=== PATIENT | male | born 1970 | race Caucasian/White ===

== ENCOUNTER 2020-04-22 23:55 | Emergency (ER) | payer BC, OTHER ==
[~2020-04-22] VITALS: Ht 193 cm; Wt 113.4 kg
[2020-04-23 00:18] VITALS: BP_SYST 176
--- NOTE | 2020-04-23 00:18 | NUR ---
Patient to ER bed 3 to gown for evaluation. Side rails up. Report given to MELISSA JC.
--- NOTE | 2020-04-23 00:38 | NUR ---
ER Dr. Snow at bedside examining patient.
[2020-04-23] MEDS ORDERED: NACL 0.9% 1,000 ML IV ONE (00:43)
--- NOTE | 2020-04-23 00:55 | NUR ---
Wily clark in [facility] - 04/23/20 at 0103 by [email or web address] PT TAKEN TO CT AWAKE VIA TIAGO.
--- NOTE | 2020-04-23 00:56 | NUR ---
# 20 gauge angiocath placed to RT AC. Use of asceptic technique. Opsite placed over site. Blood return noted. Blood for lab drawn from site. Flushed with 10 cc of normal saline. No evidence of infiltration noted. Patient tolerated well.
--- NOTE | 2020-04-23 00:58 | NUR ---
PT TAKEN TO CT AWAKE VIA GURNEY.
--- NOTE | 2020-04-23 01:05 | NUR ---
PT BACK TO ER AWAKE FROM CT VIA GURHANNAH.
[2020-04-23 01:07] LABS: BILIRUBIN,URINE NEGATIVE (NEGATIVE); CLARITY/URINE CLEAR (CLEAR); COLOR,URINE YELLOW (YELLOW); GLUCOSE,URINE NEGATIVE (NEGATIVE); KETONES,URINE NEGATIVE (NEGATIVE); LEUKOCYTE ESTERASE ,URINE NEGATIVE (NEGATIVE); NITRITE, URINE NEGATIVE (NEGATIVE); PROTEIN URINE NEGATIVE (NEGATIVE); UROBILINOGEN,URINE 0.2 (0.2-1.0)
[2020-04-23 01:10] LABS: BASOPHILS % (AUTO) 0.2 % (0.0-2.0); EOSINOPHILS % (AUTO) 0.5 % (0.0-4.0); LYMPHOCYTES # (AUTO) 1.9 K/uL (1.0-5.5); LYMPHOCYTES % (AUTO) 20.5 % (20.5-51.5); MEAN CORPUSCULAR HEMOGLOBIN 32 pg (27-31); MEAN CORPUSCULAR HGB CONC 35 % (32-36); MEAN CORPUSCULAR VOLUME 92 fL (79.0-98.0); MONOCYTES # (AUTO) 0.6 K/uL (0.0-1.0); MONOCYTES % (AUTO) 6.3 % (1.7-9.3); NEUTROPHILS # (AUTO) 6.6 K/uL (1.8-7.7); NEUTROPHILS % (AUTO) 72.5 % (40.0-70.0); PLATELET COUNT (AUTO) 197 K/uL (130-430); RED CELL DISTRIBUTION WIDTH 13.9 % (9.0-15.0); WHITE BLOOD COUNT (AUTO) 9.1 K/uL (4.8-10.8)
[2020-04-23 01:11] LABS: BLOOD, URINE TRACE (NEGATIVE)
[2020-04-23 01:13] LABS: BACTERIA,URINE FEW /HPF (None Seen); WBC,URINE 0-3 /HPF (0-3)
[2020-04-23 01:21] LABS: CALCIUM 8.9 mg/dL (8.4-11.0); POTASSIUM 4.2 mmol/L (3.5-5.1)
[2020-04-23 01:27] LABS: TOTAL BILIRUBIN 0.2 mg/dL (0.0-1.0)
[2020-04-23] MEDS ORDERED: PANTOPRAZOLE SODIUM 40 MG/VIAL (PROTONIX) IVP ONE (02:00)
--- NOTE | 2020-04-23 02:26 | NUR ---
Patient given written and verbal discharge instructions and verbalizes understanding. ER MD Dr. Snow discussed with patient the results and treatment provided. Patient in stable condition. ID arm band removed. IV catheter removed intact and dressing applied, no active bleeding. Rx of pepcid given. Patient educated on pain management and to follow up with PMD. Pain Scale 1/10. Opportunity for questions provided and answered. Medication side effect fact sheet provided.
[2020-04-23 02:28] VITALS: BP_SYST 176
== END 2020-04-23 02:26 | disposition home or self-care (01) ==
LOC: SED 23:55
DX: K29.70 Gastritis, unspecified, without bleeding (principal); R10.84 Generalized abdominal pain; I10 Essential (primary) hypertension; F17.210 Nicotine dependence, cigarettes, uncomplicated
CPT/HCPCS: 36415; 71045; 74176; 80053; 81000; 85025; 96374; 99285; C9113; G0482; J7030 ×2

== ENCOUNTER 2021-01-22 09:15 | Emergency (ER) | payer OTHER ==
[~2021-01-22] VITALS: Ht 193 cm; Wt 108.9 kg
[2021-01-22 09:21] VITALS: BP_SYST 196
[2021-01-22] MEDS ORDERED: KETOROLAC TROMETHAMINE 60 MG/2 ML VIAL IM ONE (09:45)
[2021-01-22 09:53] LABS: BILIRUBIN,URINE NEGATIVE (NEGATIVE); CLARITY/URINE CLEAR (CLEAR); COLOR,URINE YELLOW (YELLOW); GLUCOSE,URINE NEGATIVE (NEGATIVE); KETONES,URINE NEGATIVE (NEGATIVE); LEUKOCYTE ESTERASE ,URINE NEGATIVE (NEGATIVE); NITRITE, URINE NEGATIVE (NEGATIVE); PH,URINE 5.5 (5.0-8.0); PROTEIN URINE NEGATIVE (NEGATIVE); UROBILINOGEN,URINE 0.2 (0.2-1.0)
[2021-01-22 10:11] LABS: BLOOD, URINE TRACE (NEGATIVE)
[2021-01-22 10:26] LABS: BASOPHILS % (AUTO) 0.4 % (0.0-2.0); EOSINOPHILS # (AUTO) 0.1 K/uL (0.0-0.4); EOSINOPHILS % (AUTO) 0.7 % (0.0-4.0); HEMATOCRIT 42.9 % (36-54); HEMOGLOBIN 14.6 g/dL (14.0-18.0); LYMPHOCYTES # (AUTO) 2.4 K/uL (1.0-5.5); LYMPHOCYTES % (AUTO) 27.3 % (20.5-51.5); MEAN CORPUSCULAR HEMOGLOBIN 31 pg (27-31); MEAN CORPUSCULAR HGB CONC 34 % (32-36); MEAN CORPUSCULAR VOLUME 91 fL (79.0-98.0); MONOCYTES # (AUTO) 0.6 K/uL (0.0-1.0); MONOCYTES % (AUTO) 7.4 % (1.7-9.3); NEUTROPHILS # (AUTO) 5.5 K/uL (1.8-7.7); NEUTROPHILS % (AUTO) 64.2 % (40.0-70.0); PLATELET COUNT (AUTO) 241 K/uL (130-430); RED CELL DISTRIBUTION WIDTH 13.6 % (9.0-15.0); WHITE BLOOD COUNT (AUTO) 8.6 K/uL (4.8-10.8)
[2021-01-22 10:27] LABS: BACTERIA,URINE None Seen /HPF (None Seen); WBC,URINE NONE SEEN /HPF (0-3)
[2021-01-22 10:34] LABS: CALCIUM 8.9 mg/dL (8.4-11.0); CREATININE 0.83 mg/dL (0.55-1.30); POTASSIUM 4.4 mmol/L (3.5-5.1)
[2021-01-22 10:48] LABS: ALBUMIN 3.6 g/dL (3.4-4.8); TOTAL BILIRUBIN 0.3 mg/dL (0.0-1.0)
[2021-01-22] MEDS ORDERED: CIPR500T5 PO (10:55)
[2021-01-22] MEDS ORDERED: METR500T PO (10:55)
[2021-01-22] MEDS ORDERED: POLY17PO4 PO (10:55)
[2021-01-22 11:04] VITALS: BP_SYST 175
== END 2021-01-22 11:03 | disposition home or self-care (01) ==
LOC: SED 09:15
DX: K57.92 Diverticulitis of intestine, part unspecified, without perforation or abscess without bleeding (principal); I10 Essential (primary) hypertension; Z79.899 Other long term (current) drug therapy
CPT/HCPCS: 36415; 74176; 76376; 80053; 81000; 83690; 85025; 96372; 99284; J1885

== ENCOUNTER 2021-06-03 18:58 | Inpatient (IN) | payer OTHER, SELFPAY ==
[~2021-06-03] VITALS: Ht 190.5 cm; Wt 112.6 kg
[~2021-06-03 18:58] MED LIST: CIPR500T5 PO; METR500T PO; POLY17PO4 PO
[2021-06-03 19:15] VITALS: BP_SYST 146
--- NOTE | 2021-06-03 19:15 | NUR ---
PT TO BED 2 FOR EVALUATION.
--- NOTE | 2021-06-03 19:40 | NUR ---
Assumed total care of patient. Patient alert & oriented x4 from home c/o lower abdominal pain that started about an hour ago. Patient reports 8 out of 10 pain, sharp stabbing like. Patient denies nausea, vomiting, diarrhea. Patient last bowel movement 06/02/21 in the AM. Patient hx of diverticulitis. Patient placed on awake overnight monitor. Breathing even and unlabored, no signs of acute distress. Will continue to monitor.
--- NOTE | 2021-06-03 19:44 | NUR ---
# 18 gauge angiocath placed to LEFT AC. Use of asceptic technique. Opsite placed over site. Blood return noted. Blood & LACTIC for lab drawn from site. Flushed with 10 cc of normal saline. No evidence of infiltration noted. Patient tolerated well.
--- NOTE | 2021-06-03 20:31 | NUR ---
ER Dr. Wray at bedside examining patient.
[2021-06-03] MEDS ORDERED: KETOROLAC TROMETHAMINE 30 MG VIAL IVP ONE (20:45)
[2021-06-03] MEDS ORDERED: NACL 0.9% 1,000 ML IV ONE (20:45)
--- NOTE | 2021-06-03 20:49 | NUR ---
Patient medicated per MD orders. Patient tolerated well.
[2021-06-03 20:52] LABS: BASOPHILS % (AUTO) 0.3 % (0.0-2.0); EOSINOPHILS # (AUTO) 0.2 K/uL (0.0-0.4); EOSINOPHILS % (AUTO) 2.7 % (0.0-4.0); HEMATOCRIT 43.4 % (36-54); HEMOGLOBIN 15.2 g/dL (14.0-18.0); LYMPHOCYTES # (AUTO) 3.2 K/uL (1.0-5.5); MEAN CORPUSCULAR HEMOGLOBIN 32 pg (27-31); MEAN CORPUSCULAR HGB CONC 35 % (32-36); MEAN CORPUSCULAR VOLUME 91 fL (79.0-98.0); MONOCYTES # (AUTO) 0.9 K/uL (0.0-1.0); MONOCYTES % (AUTO) 9.4 % (1.7-9.3); NEUTROPHILS # (AUTO) 4.8 K/uL (1.8-7.7); NEUTROPHILS % (AUTO) 52.6 % (40.0-70.0); PLATELET COUNT (AUTO) 237 K/uL (130-430); RED BLOOD CELL COUNT(AUTO) 4.79 MIL/uL (4.2-6.2); RED CELL DISTRIBUTION WIDTH 13.7 % (9.0-15.0); WHITE BLOOD COUNT (AUTO) 9.1 K/uL (4.8-10.8)
[2021-06-03 20:55] LABS: CREATININE 0.92 mg/dL (0.55-1.30); POTASSIUM 4.3 mmol/L (3.5-5.1)
[2021-06-03 21:01] LABS: ALBUMIN 3.7 g/dL (3.4-4.8); INR 0.9 (0.80-1.20); PROTHROMBIN TIME 9.8 SECS (9.5-12.5); TOTAL BILIRUBIN 0.3 mg/dL (0.0-1.0)
[2021-06-03 21:33] LABS: BILIRUBIN,URINE NEGATIVE (NEGATIVE); BLOOD, URINE TRACE (NEGATIVE); CLARITY/URINE CLEAR (CLEAR); COLOR,URINE YELLOW (YELLOW); GLUCOSE,URINE NEGATIVE (NEGATIVE); KETONES,URINE NEGATIVE (NEGATIVE); LEUKOCYTE ESTERASE ,URINE NEGATIVE (NEGATIVE); NITRITE, URINE NEGATIVE (NEGATIVE); PROTEIN URINE NEGATIVE (NEGATIVE); UROBILINOGEN,URINE 0.2 (0.2-1.0)
[2021-06-03 21:34] LABS: RBC,URINE 0-3 /HPF (0-3); WBC,URINE 0-3 /HPF (0-3)
[2021-06-03 21:35] LABS: BACTERIA,URINE FEW /HPF (None Seen); MUCUS,URINE None Seen /LPF (None Seen)
--- NOTE | 2021-06-03 21:42 | NUR ---
Patient transported to radiology via wheelchair, accompanied by tech.
--- NOTE | 2021-06-03 22:01 | NUR ---
Returned from radiology, back to [facility].
--- NOTE | 2021-06-03 23:02 | NUR ---
Report given to HOSEA Monae for continuation of care.
--- NOTE | 2021-06-03 23:05 | NUR ---
VSS no s/s of acute distress Resting on gurney rails up
--- NOTE | 2021-06-04 00:11 | NUR ---
Pt stated " feeling a little bit better "
[2021-06-04] MEDS ORDERED: cefTRIAXone 1 GM in D5W 50 ML IV ONE (00:30)
[2021-06-04] MEDS ORDERED: metroNIDAZOLE 500 mg/NS 100 ML IV ONE ×2 (00:30→02:40)
[2021-06-04] MEDS ORDERED: ACETAMINOPHEN 325 MG TABLET PO PRN (00:30)
--- NOTE | 2021-06-04 01:19 | NUR ---
Pt adm to Med Surg Floor
[2021-06-04 01:31] VITALS: BP_SYST 146
--- NOTE | 2021-06-04 01:31 | NUR ---
ADMISSION: The patient, SUNITA HUTSON, 50 y/o, M admitted by LINDA MICHAEL MD, was given written information regarding hospital policies, unit procedures and contact persons. Valuables were checked and DOCUMENTED.
--- NOTE | 2021-06-04 01:31 | NUR ---
Patient will be admitted to care of Dr. Alva. Admitted to Med Surg unit. Will go to room 116. Belongings list completed. Complete and up to date summary report printed. SBAR report to be given at bedside with opportunity for questions.
[2021-06-04] MEDS ORDERED: cefTRIAXone 1 GM VIAL ONE (02:40)
--- NOTE | 2021-06-04 02:41 | NUR ---
CONSULT: CONSULT CALLED FOR DR. LAUREEN DENISE PASSENGER CAR CONDUCTOR THIS MORNING I SPOKE WITH LORENA HART REASON FOR CONSULT: DIVERTICULITIS REQUESTING CONSULT: DR. MICHAEL STATION INSTALLER AND REPAIRER PHONE NUMBER: [phone]
--- NOTE | 2021-06-04 02:54 | NUR ---
PAGED DR. MICHAEL I SPOKE WITH NIKKI
--- NOTE | 2021-06-04 04:07 | NUR ---
DR. MICHAEL CALLED REGARDING PAIN Patient complaining of sharp 10/10 abdominal pain and also reports taking [place] 7.5-325 at home 3 times a day PRN for joint pain - reported to Dr. Michael; Ordered Morphine 4mg Q4H PRN for severe pain, zofran 4mg Q4H PRN for n/v, and [place] 7.5-325 PRN Q4H for moderate pain.
[2021-06-04] MEDS ORDERED: HYDROcodone/ACETAMIN 7.5-325 MG TAB PO PRN (04:15)
[2021-06-04] MEDS ORDERED: ONDANSETRON HCL 4 MG/2 ML VIAL IM PRN (04:15)
[2021-06-04] MEDS: MORPHINE 4 MG INJ. 4 MG/ML VIAL IVP PRN ×4 (04:28→22:13)
--- NOTE | 2021-06-04 06:48 | NUR ---
CLOSING NOTES Patient resting in bed - no s/s pain or distress noted. Respirations even and unlabored - head of bed elevated. IV site patent - no s/s redness, infection, or infiltration. Bed locked and in lowest position. Call light within reach.
--- NOTE | 2021-06-04 08:00 | NUR ---
am notes PT IN BED.RESTING COMFORTBALY.RES EVEN AND UNLABORED.VITALS STABLE NOTIN ACUTE DISTRESS. IV SITE PATENT . NO S/S OF INFILTRATION NOTED.SAFETY/ FALL PRECAUTION IN PLACE. BED LOCKED AND IN LOW POSITION.POC DISCUSSED WITH PT.VERBALIZED UNDER STANDING.CALL LIGHT WITHIN REACH.. WILL CONTINUE TO MONITOR
[2021-06-04 08:10] VITALS: BP_SYST 147
[2021-06-04] MEDS: LEVOFLOXACIN IN DEXTROSE 5 % 100 ML IV SCH (11:05)
[2021-06-04 11:34] VITALS: BP_SYST 159
[2021-06-04] MEDS ORDERED: LISINOPRIL 10 MG TABLET (PRINIVIL) PO ONE (12:45)
[2021-06-04] MEDS: metroNIDAZOLE 500 mg/NS 100 ML IV SCH ×2 (13:11→21:14)
[2021-06-04 15:34] VITALS: BP_SYST 155
[2021-06-04] MEDS ORDERED: ONDANSETRON HCL 4 MG/2 ML VIAL IVP PRN (16:00)
[2021-06-04] MEDS ORDERED: BISACODYL 5 MG TABLET.DR (DULCOLAX) PO ONE (17:00)
[2021-06-04] MEDS ORDERED: GOLYTELY / COLYTE SOLUTION 4 LITERS PO ONE (18:00)
--- NOTE | 2021-06-04 18:51 | NUR ---
closing notes PT IN BED.RESTING COMFORTBALY.RES EVEN AND UNLABORED. NOTIN ACUTE DISTRESS. IV SITE PATENT . NO S/S OF INFILTRATION NOTED.SAFETY/ FALL PRECAUTION IN PLACE. BED LOCKED AND IN LOW POSITION.POC DISCUSSED WITH PT.VERBALIZED UNDER STANDING.CALL LIGHT WITHIN REACH. NEEDS ATTENDED THROUGHOUT SHIFT. WILL ENDORSE TO NIGHT NURSE
--- NOTE | 2021-06-04 19:25 | NUR ---
OPENING NOTES PATIENT RESTING, HOB ELEVATED, NO SIGNS OF RESPIRATORY DISTRESS NOTED AT THIS TIME. CALL LIGHT WITHIN REACH, BED ALARM OFF PER PATIENT REQUEST DESPITE AFTER RISKS AND BENEFITS OF BED ALARM TAUGHT, BED AT LOWEST POSITION, BED LOCKED. FALL, RESPIRATORY, ASPIRATION, AND SAFETY PRECAUTIONS IN PLACE THROUGHOUT SHIFT. PATIENT DEMONSTRATED PROPER CALL LIGHT USAGE. DISCUSSED PLAN OF CARE WITH PATIENT. PATIENT ALREADY MORE THAN HALF WAY DONE FOR THE [employer]. BEDSIDE COMMODE PROVIDED. ALL NEEDS MET THROUGHOUT SHIFT. WILL ENDORSE CARE TO ONCOMING SHIFT.
[2021-06-04 20:00] VITALS: BP_SYST 148
[2021-06-05] VITALS: BP_SYST 147
--- NOTE | 2021-06-05 | NUR ---
PATIENT TO BE NPO, NO SIGNS OF DISTRESS NOTED. PATIENT WATCHING TELEVISION AT THIS TIME. BOWEL MOVEMENTS NOTED, NO SOLID STOOL NOTED, JUST SMALL SEDIMENTS. WILL CONTINUE TO MONITOR.
[2021-06-05] MEDS: MORPHINE 4 MG INJ. 4 MG/ML VIAL IVP PRN ×2 (05:09→12:23)
[2021-06-05] MEDS: metroNIDAZOLE 500 mg/NS 100 ML IV SCH ×2 (05:45→15:15)
--- NOTE | 2021-06-05 06:43 | NUR ---
CLOSING NOTES PATIENT RESTING, NO SIGNS OF DISTRESS NOTED AT THIS TIME. PAIN MONITORED THROUGHOUT SHIFT. CALL LIGHT WITHIN REACH, BED ALARM OFF PER PATIENT REQUEST AFTER RISKS AND BENEFITS OF BED ALARM TAUGHT, BED AT LOWEST POSITION, BED LOCKED. FALL, RESPIRATORY, ASPIRATION, AND SAFETY PRECAUTIONS IN PLACE THROUGHOUT SHIFT. PATIENT DEMONSTRATED PROPER CALL LIGHT USAGE. ALL NEEDS MET THROUGHOUT SHIFT. WILL ENDORSE CARE TO ONCOMING SHIFT.
[2021-06-05] MEDS ORDERED: SIMETHICONE 40 MG/0.6 ML ML ONE (06:46)
[2021-06-05 07:25] LABS: PROTHROMBIN TIME 10.2 SECS (9.5-12.5)
[2021-06-05 07:30] VITALS: BP_SYST 152
--- NOTE | 2021-06-05 07:30 | NUR ---
ASSUMPTION OF CARE: RECEIVED PT A/A/OX4, DX:PAIN, R/T DIVERTICULITIS, NO S/S OF DISTRESS, VSS, AFEBRILE, BREATH SOUNDS ARE CLEAR, BREATHING UNLABORED, SATURATING 98% ORA, DENIES HAVING PAIN, IV SITE INTACT, PATENT, NO REDNESS OR SWELLING, ORIENTED TO UNIT, CALL LIGHT PLACED WITHIN REACH, WILL CONT' TO MONITOR AND ASSESS.
--- NOTE | 2021-06-05 07:40 | NUR ---
GI LAB: PT OFF UNIT TO GI LAB VIA WC FOR SCHEDULED COLONOSCOPY, CONDITION REMAINS STABLE AT THIS TIME, WILL CONT' TO MONITOR AND ASSESS.
[2021-06-05] MEDS: fentaNYL CITRATE/PF 100 MCG/2 ML AMP ONE ×3 (07:44→07:49)
[2021-06-05] MEDS: MIDAZOLAM HCL 5 MG/5 ML VIAL ONE ×4 (07:44→07:54)
[2021-06-05] MEDS ORDERED: DIPHENHYDRAMINE INJ 50 MG/ML VIAL ONE (07:55)
[2021-06-05] MEDS ORDERED: MIDAZOLAM HCL 5 MG/5 ML VIAL ONE (07:56)
[2021-06-05] MEDS ORDERED: fentaNYL CITRATE/PF 100 MCG/2 ML AMP ONE (07:56)
[2021-06-05] MEDS ORDERED: LISINOPRIL 10 MG TABLET (PRINIVIL) PO SCH (09:00)
[2021-06-05] MEDS: LEVOFLOXACIN IN DEXTROSE 5 % 100 ML IV SCH (09:40)
--- NOTE | 2021-06-05 10:30 | NUR ---
gi lab: pt returned from gi lab instable condition, mildly sedated, arousable via verbal stimuli, no s/s of distress, will cont' with plan of care
[2021-06-05 11:30] VITALS: BP_SYST 156
[2021-06-05] MEDS ORDERED: METR500T PO (13:45)
[2021-06-05] MEDS ORDERED: CIPR500T5 PO (13:46)
[2021-06-05 15:43] VITALS: BP_SYST 140
[2021-06-05 15:51] VITALS: BP_SYST 140
--- NOTE | 2021-06-05 16:48 | NUR ---
D/C Patient Patient given medication reconciliation form and D/C instructions. Exit Care provided. Patient verbalized understanding. MD discussed with patient the results and treatment provided. Ambulatory with steady gait for discharge to home. Patient in stable condition, ID band removed. IV catheter removed. ERx of ciprofloxacin and flagyl given. Patient educated on pain management, diet and activity .Patient and verbalized understanding. All belongings sent with patient.
--- NOTE | 2021-06-06 08:41 | NUR ---
Disposition 01
== END 2021-06-05 16:00 | disposition home or self-care (01) | DRG 392 ==
LOC: SED 18:58 → SMU 06-04 00:27
PROVIDERS: ADMIT Internal Medicine; ATTEND Internal Medicine
PROC: 0DBK8ZX Excision of Ascending Colon, Via Natural or Artificial Opening Endoscopic, Diagnostic (ICD-10-PCS; 2021-06-05)
PROC: 0DBH8ZZ Excision of Cecum, Via Natural or Artificial Opening Endoscopic (ICD-10-PCS; principal; 2021-06-05 07:30)
DX: K57.30 Diverticulosis of large intestine without perforation or abscess without bleeding (principal); K63.5 Polyp of colon; K64.4 Residual hemorrhoidal skin tags; I10 Essential (primary) hypertension; M54.9 Dorsalgia, unspecified; G89.29 Other chronic pain; Z20.822 Contact with and (suspected) exposure to COVID-19; F17.210 Nicotine dependence, cigarettes, uncomplicated; E66.9 Obesity, unspecified; Z79.899 Other long term (current) drug therapy; Z68.31 Body mass index [BMI] 31.0-31.9, adult; Z79.891 Long term (current) use of opiate analgesic
CPT/HCPCS: 36415; 45385; 76376; 80053; 81000; 82150; 83690; 85025; 85610-TC; 87040-TC; 88305; 96361; 96374; 99285; J0696; J1200; J1885; J1956; J2250; J2270; J2405; J3010; J3490

== ENCOUNTER 2022-11-09 20:09 | Emergency (ER) | payer OTHER ==
[~2022-11-09] VITALS: Ht 193 cm; Wt 111.1 kg
[2022-11-09 21:00] VITALS: BP_SYST 148
[2022-11-09] MEDS ORDERED: AUG875 PO (21:29)
[2022-11-09] MEDS ORDERED: IBUP-1971 PO (21:29)
[2022-11-09] MEDS ORDERED: KETOROLAC TROMETHAMINE 60 MG/2 ML VIAL IM ONE (21:30)
[2022-11-09] MEDS ORDERED: cefTRIAXone 1 GM VIAL IM ONE (21:30)
[2022-11-09 22:15] VITALS: BP_SYST 145
== END 2022-11-09 22:15 | disposition home or self-care (01) ==
LOC: SED 20:09
DX: H66.92 Otitis media, unspecified, left ear (principal); R42 Dizziness and giddiness; I10 Essential (primary) hypertension; Z79.899 Other long term (current) drug therapy
CPT/HCPCS: 99284; 96372; J0696; J1885

== ENCOUNTER 2023-01-30 08:04 | Emergency (ER) | payer OTHER ==
[~2023-01-30] VITALS: Ht 190.5 cm; Wt 108.9 kg
[~2023-01-30 08:04] MED LIST changes: +AUG875 PO; +IBUP-1971 PO
[2023-01-30 08:16] VITALS: BP_SYST 183
--- NOTE | 2023-01-30 08:20 | NUR ---
Wily clark in ED - 01/30/23 at [email or web address] ERIC AT BEDSIDE ASSESSING PT.
--- NOTE | 2023-01-30 08:22 | NUR ---
Note undone in EDM - 01/30/23 at 0925 by [email or web address] ASSUMED CARE OF A&OX 4 PT WITH CLEAR SPEECH, PATENT AIRWAY AND A STEADY GAIT. UPON ARRIVAL PT WAS MOANING AND PACING IN ROOM STATING HIS STOMACH REALLY HURTS AND HE CAN'T PEE. PT WAS PLACED INTO GOWN AND POSITIONED IN BED TO COMFORT. PT'S FIRST BP REALLY HIGH HE CAN'T STAY STILL DUE TO PAIN AND RESTLESSNESS. PT REPORTED THAT HE HASN'T BEEN ABLE TO VOID SINCE 0200 AND THAT HE HAS A HISTORY OF PRESENTING TO THE ER FOR CATHETER PLACEMENT IN THE PAST. HE REPORTS A PAST HISTORY OF AN ENLARGED PROSTATE BUT REPORTS THAT HE HASN'T BEEN TAKING HIS PRESCRIBED TAMULOSIN. PT IS PENDING CATHETER PLACEMENT. SIDE RAILS UPX 2.WILL CONTINUE TO MONITOR.
[2023-01-30] MEDS ORDERED: IBUP-1971 PO (08:30)
[2023-01-30] MEDS ORDERED: CORTEARS EACH EAR (08:30)
[2023-01-30] MEDS ORDERED: AMOX250C PO (08:30)
--- NOTE | 2023-01-30 08:42 | NUR ---
BROUGHT BACK TO BED #7 AND REPORT GIVEN TO YULI
--- NOTE | 2023-01-30 08:45 | NUR ---
A&OX 4 PT WITH CLEAR SPEECH AND PATENT AIRWAY PRESENTED TO THE ED WITH 3 WEEKS WITH BILATERAL RINGING IN THE EARS. PT REPORTS THAT 1 MONTH AGO HE WAS DIAGNOSED WITH A SINUS INFECTON AND EAR INFECTON OF WHICH HE COMPLETED ANTIBIOTICS AT THAT TIME; RINGING RESOLVED. THEN ABOUT 3 WEEKS AGO THE RINGING RESTARTED AND FOR THE LAST WEEK HE HAS ALSO BEEN HAVING NASAL CONGESTION AND PRESSURE BEHIND HIS EYES. HE REPORTS THAT HE RINGING IS CONSTANT AND INTERMITTENTLY CAUSES PAIN WELL. PT PENDING ORDERS AT THIS TIME.
--- NOTE | 2023-01-30 08:52 | NUR ---
Note eduardo in EDM - 01/30/23 at 0925 by [email or web address] IV PLACED IN PT'S LEFT AC WITH DRESSING C/D/I. PT TOLERATED 16F URINARY CATHETER, BUT PLACEMENT WAS DIFFICULT POSSIBLY DUE TO ENLARGED PROSTATE. URINE WAS CLEAR YELLOW AND HAD SMALL CLOTS IN BAG. ABDOMEN IS NO LONGER DISTENDED, AND IS SOFT AND PT REPORTS THE ABDOMINAL PAIN IS NOW GONE. PT POSITIONED TO COMFORT AND PROVIDED WARM BLANKED AND LIGHTS TURNED DOWN.
--- NOTE | 2023-01-30 09:04 | NUR ---
Wily clark in ED - 01/30/23 at 0925 by [email or web address] PT RESTING IN BED WITH EYES CLOSED AND WITHOUT ANY RESTLESS MOVEMENTS OR S/S OF DISTRESS. WILL CONTINUE TO CLOSELY MONITOR.
[2023-01-30 09:20] VITALS: BP_SYST 135
--- NOTE | 2023-01-30 09:20 | NUR ---
Patient given written and verbal discharge instructions and verbalizes understanding. ER MD discussed with patient the results and treatment provided. Patient in stable condition. ID arm band removed. 3 prescriptions were sent to pharmacy. Patient educated on pain management and to follow up with PMD. Pain reports his ear is not currently painful. Opportunity for questions provided and answered. Medication side effect fact sheet provided. pt ambulated out of ED with a steady gait.
== END 2023-01-30 09:20 | disposition home or self-care (01) ==
LOC: SED 08:04
DX: H60.92 Unspecified otitis externa, left ear (principal); H92.02 Otalgia, left ear; I10 Essential (primary) hypertension; Z79.899 Other long term (current) drug therapy
CPT/HCPCS: 99283

== ENCOUNTER 2023-10-08 09:14 | Emergency (ER) | payer OTHER ==
[~2023-10-08] VITALS: Ht 193 cm; Wt 104.3 kg
[~2023-10-08 09:14] MED LIST changes: +AMOX250C PO; +CORTEARS EACH EAR
[2023-10-08 09:15] VITALS: BP_SYST 171; PULSE 60; RESP 19; TEMP 97.5; O2SAT 97
[2023-10-08] MEDS ORDERED: DIPHTH,PERTUSS(ACELL),TET VAC 0.5 ML VIAL (Tdap) I.M. ONE (09:30)
[2023-10-08 09:47] VITALS: BP_SYST 171; PULSE 60; RESP 19; TEMP 97.5; O2SAT 97
== END 2023-10-08 09:47 | disposition home or self-care (01) ==
LOC: SED 09:14
DX: S51.831A Puncture wound without foreign body of right forearm, initial encounter (principal); I10 Essential (primary) hypertension; Z79.899 Other long term (current) drug therapy; W29.8XXA Contact with other powered hand tools and household machinery, initial encounter; Y93.89 Activity, other specified; Y92.89 Other specified places as the place of occurrence of the external cause; Y99.8 Other external cause status
CPT/HCPCS: 90715; 99283